=== PATIENT | female | born 1940 | race Caucasian/White ===

== ENCOUNTER 2019-09-24 22:24 | Emergency (ER) | payer MEDICARE, BC ==
[~2019-09-24] VITALS: Ht 170.2 cm; Wt 77.3 kg
[~2019-09-24 22:24] MED LIST: ASPI-903 PO; CIPR500T4 PO; CRES5 PO; CYAN500T55 PO; DIAZ5TAB4 PO; DOXE75CA2 PO; FLUO20CA22 PO; FURO40TA4 PO; GABA300C16 PO; HYDR-3605 PO; L. A1CAP10 PO; LEVO100T8 PO; METR500T PO; MORP1CAP11 PO; RAME8TAB21 PO; TAPE100T8 PO; ZOLP10TA5 PO; ZOLP12.54 PO
[2019-09-24 22:37] VITALS: Ht 170.2 cm; Wt 77.3 kg
[2019-09-24] MEDS ORDERED: morphine 4 MG/ML VIAL IV STA (22:44)
[2019-09-24] MEDS ORDERED: ONDANSETRON 4 MG INJ IV STA (22:44)
[2019-09-25] MEDS ORDERED: SOD CHLORIDE 0.9% 1,000 ML IV ONE (06:00)
[2019-09-25 10:59] VITALS: BP 98/73; PULSE 78; RESP 15
== END 2019-09-25 11:01 | disposition home or self-care (01) ==
LOC: E/R 22:24
DX: R53.1 Weakness (principal); M19.90 Unspecified osteoarthritis, unspecified site; R07.9 Chest pain, unspecified; Z87.891 Personal history of nicotine dependence; Z79.82 Long term (current) use of aspirin
CPT/HCPCS: 36415; 71045; 80053; 84484; 85025; 85610; 93005; 96361; 96374; 96375; 99285; J2270; J2405; J7030